=== PATIENT | female | born 1990 | race Caucasian/White ===

== ENCOUNTER 2022-10-08 20:15 | Emergency (ER) | payer OTHER ==
[2022-10-08 20:23] VITALS: BP 131/85; PULSE 80; RESP 18; TEMP 98.1; BMI 25.9
[2022-10-08] MEDS ORDERED: ACETAMINOPHEN 325 MG TABLET (FP) ONE (22:02)
== END 2022-10-09 00:20 | disposition left against medical advice (07) ==
LOC: JER 20:15 → JERFT 20:15 → JER 10-09 00:20
DX: R10.32 Left lower quadrant pain (principal); N93.0 Postcoital and contact bleeding
CPT/HCPCS: 99281-25

== ENCOUNTER 2023-08-12 03:40 | Inpatient (IN) | payer OTHER ==
[2023-08-07 10:34] VITALS: BMI 24.1
[2023-08-12] MEDS ORDERED: GENTAMICIN SO4 80 MG/2 ML VIAL ONE (07:19)
[2023-08-12] MEDS ORDERED: THROMBIN (BOVINE) 5,000 UNIT VIAL TP ONE (07:19)
[2023-08-12] MEDS ORDERED: LIDOCAINE 1%/EPI 1:100000 (20 ML MULTI DOSE VIAL) ONE (07:19)
[2023-08-12] MEDS: ceFAZolin SODIUM 1 GM VIAL IVPB ONE ×2 (07:30→08:40)
[2023-08-12] MEDS: VANCOMYCIN 1 GM in D5W (PRE-DOCKED) 1,000 MG/250 ML (RESTRICTED TO ID ONLY IVPB ONE ×2 (07:31→08:40)
[2023-08-12] MEDS: LIDOCAINE 1%/EPI 1:100000 (20 ML MULTI DOSE VIAL) IJ ONE ×2 (07:31→08:41)
[2023-08-12] MEDS ORDERED: SUCCINYLCHOLINE CHLORIDE 200 MG/10 ML SYRINGE ONE (07:32)
[2023-08-12] MEDS ORDERED: PROPOFOL 40 ML ONE (07:32)
[2023-08-12] MEDS ORDERED: FENTANYL CITRATE/PF 50 MCG/ML VIAL ONE ×8 (07:32→13:27)
[2023-08-12] MEDS ORDERED: MIDAZOLAM HCL 2 MG/2 ML SINGLE DOSE VIAL ONE (07:32)
[2023-08-12] MEDS ORDERED: ROCURONIUM BROMIDE 50 MG/5 ML SYRINGE ONE (07:32)
[2023-08-12] MEDS: THROMBIN (BOVINE) 5,000 UNIT VIAL TP ONE (09:27)
[2023-08-12] MEDS: GENTAMICIN SO4 80 MG/2 ML VIAL IVPB ONE ×2 (09:27→09:40)
[2023-08-12] MEDS: HYDROGEN PEROXIDE 473 ML PO ONE ×2 (09:27→09:40)
[2023-08-12] MEDS ORDERED: NEOSTIGMINE METHYLSULFATE 0.5 MG/1 ML - 10 ML MDV ONE (09:43)
[2023-08-12] MEDS ORDERED: ONDANSETRON 4 MG/2 ML VIAL IVPUSH PRN ×2 (10:12→10:18)
[2023-08-12] MEDS ORDERED: PROMETHAZINE HCL 25 MG/1 ML VIAL IVPB PRN (10:12)
[2023-08-12] MEDS ORDERED: diphenhydrAMINE HCL 25 MG CAPSULE (FP) PO PRN (10:18)
[2023-08-12] MEDS ORDERED: oxyCODONE HCL 5 MG TABLET PO PRN ×2 (10:18)
[2023-08-12] MEDS: HEPARIN NA (PORCINE) 5,000 UNITS/ML 1ML VIAL SQ SCH (10:30)
[2023-08-12] MEDS ORDERED: PATIENT'S OWN MEDICATION (NON-FORMULARY) (Acetaminophen [Tylenol] 325 MG Capsule) PO SCH (10:30)
[2023-08-12] MEDS ORDERED: ACETAMINOPHEN INJECTION 100 ML IVPB ONE (10:53)
[2023-08-12] MEDS: ACETAMINOPHEN 1000 MG/100 ML BAG IVPB SCH (10:56)
[2023-08-12] MEDS: FENTANYL CITRATE/PF 50 MCG/ML VIAL IVPUSH PRN (11:15)
[2023-08-12] MEDS ORDERED: HEPARIN NA (PORCINE) 5,000 UNITS/ML 1ML VIAL ONE (13:12)
[2023-08-12] MEDS: LACTATED RINGERS SOLUTION 1,000 ML IV SCH (13:45)
[2023-08-12] MEDS: LACTATED RINGERS SOLUTION 1,000 ML/1,000 ML INFUS.BAG IV SCH (14:21)
[2023-08-12 15:36] LABS: HEMATOCRIT 35.8 % (32.4-45.2); HEMOGLOBIN 12.1 GM/dL (10.7-15.3); MCH 29.7 pg (25.7-33.7); MCHC 33.7 g/dl (32.0-36.0); MEAN CELL VOLUME 88.2 fl (80-96); MEAN PLT VOLUME 8.1 fl (7.5-11.1); PLATELET COUNT 302 10^3/uL (134-434); RBC 4.06 M/mm3 (3.60-5.2); RDW 13.5 % (11.6-15.6)
[2023-08-12] MEDS: DOCUSATE SODIUM 100 MG CAPSULE (FP) PO SCH (15:49)
[2023-08-12] MEDS: CYCLOBENZAPRINE HCL 10 MG TABLET (FP) PO SCH (15:49)
[2023-08-12] MEDS: morphine SULFATE 4 MG/ML VIAL IVPUSH PRN (15:49)
[2023-08-12 15:56] LABS: POTASSIUM 4.7 mmol/L (3.5-5.1)
[2023-08-12 15:58] LABS: CALCIUM 9.1 mg/dL (8.5-10.1)
[2023-08-12 16:00] LABS: ALBUMIN 3.5 g/dl (3.4-5.0); BLOOD UREA NITROGEN 8.2 mg/dL (7-18); MAGNESIUM 1.9 mg/dL (1.8-2.4)
[2023-08-12 16:02] LABS: CREATININE 0.6 mg/dL (0.55-1.3)
[2023-08-12 16:04] LABS: BILIRUBIN,TOTAL 0.4 mg/dL (0.2-1); TOT PROT 7.2 g/dl (6.4-8.2)
[2023-08-12] MEDS: CEFAZOLIN 1 GM in DEXTROSE 5%-WATER - 50 ML IVPB SCH (18:15)
[2023-08-13 08:44] LABS: HEMOGLOBIN 10.4 GM/dL (10.7-15.3); MCHC 33.6 g/dl (32.0-36.0); MEAN CELL VOLUME 89.3 fl (80-96); PLATELET COUNT 240 10^3/uL (134-434); RBC 3.47 M/mm3 (3.60-5.2); RDW 13.6 % (11.6-15.6); WHITE BLOOD COUNT 8.4 K/mm3 (4.0-10.0)
[2023-08-13 08:58] LABS: POTASSIUM 4.6 mmol/L (3.5-5.1)
[2023-08-13 09:02] LABS: CALCIUM 8.8 mg/dL (8.5-10.1)
[2023-08-13 09:03] LABS: CREATININE 0.5 mg/dL (0.55-1.3)
[2023-08-13 14:52] VITALS: BP 110/72; PULSE 99; RESP 18; TEMP 98.4
== END 2023-08-13 15:30 | disposition home or self-care (01) | DRG 321 ==
LOC: J2C 03:40 → J8W 14:32
PROVIDERS: ADMIT Neurological Surgery; ATTEND Nurse Practitioner Acute Care
PROC: 0RB30ZZ Excision of Cervical Vertebral Disc, Open Approach (ICD-10-PCS; 2023-08-12)
PROC: 00NW0ZZ Release Cervical Spinal Cord, Open Approach (ICD-10-PCS; 2023-08-12)
PROC: 4A1004G Monitoring of Central Nervous Electrical Activity, Intraoperative, Open Approach (ICD-10-PCS; 2023-08-12)
PROC: 0RG20A0 Fusion of 2 or more Cervical Vertebral Joints with Interbody Fusion Device, Anterior Approach, Anterior Column, Open Approach (ICD-10-PCS; principal; 2023-08-12 08:00)
DX: M47.12 Other spondylosis with myelopathy, cervical region (principal); M40.209 Unspecified kyphosis, site unspecified
CPT/HCPCS: 36415; 72125-TC; 76000-TC-FY; 80048; 80053; 81025; 83735; 84100; 85025; 85027; 86850; 86900; 86901; 94760; 97116-GP; 97161-GP; C1713; J0131; J1644

== ENCOUNTER 2023-10-27 22:15 | Emergency (ER) | payer OTHER ==
[2023-10-27 22:21] VITALS: BP 105/71; PULSE 69; RESP 20; TEMP 97.8; BMI 24.1
[2023-10-27] MEDS: METHOCARBAMOL 500 MG TABLET PO ONE (23:20)
[2023-10-27] MEDS ORDERED: METHOCARBAMOL 500 MG TABLET ONE (23:22)
== END 2023-10-28 01:56 | disposition home or self-care (01) ==
LOC: JER 22:15
DX: M54.2 Cervicalgia (principal)
CPT/HCPCS: 99283-25

== ENCOUNTER 2024-04-14 14:15 | Emergency (ER) | payer OTHER ==
[2024-04-14 14:33] VITALS: BMI 26.6
[2024-04-14] MEDS ORDERED: ACETAMINOPHEN 325 MG TABLET (FP) ONE (15:46)
[2024-04-14] MEDS: SODIUM CHLORIDE 0.9% 500 ML INFUS.BAG IV ONE (15:58)
[2024-04-14] MEDS: ACETAMINOPHEN 500 MG TABLET (FP) PO ONE (15:58)
[2024-04-14 16:13] LABS: BASO % 0.4 % (0-2.0); EOS % 1.6 % (0-4.5); HEMATOCRIT 34.4 % (32.4-45.2); HEMOGLOBIN 11.9 GM/dL (10.7-15.3); LYMPH % 17.2 % (8-40); MCH 30.6 pg (25.7-33.7); MCHC 34.5 g/dl (32.0-36.0); MEAN CELL VOLUME 88.5 fl (80-96); MEAN PLT VOLUME 8.4 fl (7.5-11.1); MONO % 6.4 % (3.8-10.2); NEUT % 74.4 % (42.8-82.8); PLATELET COUNT 250 10^3/uL (134-434); RBC 3.88 M/mm3 (3.60-5.2); RDW 14.4 % (11.6-15.6)
[2024-04-14 16:15] LABS: EPI CELLS >36 /uL (0-25.1); HYALINE CASTS 0 /uL (0-3.1); PH,URINE 6.5 (5.0-8.0); URINE APPEARANCE CLEAR; URINE BACTERIA 1189 /uL (0-1359); URINE BILIRUBIN NEGATIVE (NEGATIVE); URINE COLOR YELLOW; URINE GLUCOSE (UA) NEGATIVE (NEGATIVE); URINE KETONE NEGATIVE (NEGATIVE); URINE LEUK ESTERASE 3+ (NEGATIVE); URINE NITRITE NEGATIVE (NEGATIVE); URINE PROTEIN NEGATIVE (NEGATIVE); URINE RBC 7 /uL (0-23.9); URINE WBC 81 /uL (0-25.8)
[2024-04-14 16:33] LABS: ALBUMIN 3.8 g/dl (3.4-5.0); BLOOD UREA NITROGEN 7.6 mg/dL (7-18); CALCIUM 9.3 mg/dL (8.5-10.1)
[2024-04-14 16:36] LABS: CREATININE 0.4 mg/dL (0.55-1.3)
[2024-04-14 16:38] LABS: BILIRUBIN,TOTAL 0.3 mg/dL (0.2-1); TOT PROT 7.3 g/dl (6.4-8.2)
[2024-04-14 16:41] LABS: HCG,QUALITATIVE URINE Positive
[2024-04-14 18:07] LABS: URINE APPEARANCE CLEAR; URINE BILIRUBIN NEGATIVE (NEGATIVE); URINE COLOR YELLOW; URINE GLUCOSE (UA) 3+ (NEGATIVE); URINE KETONE TRACE (NEGATIVE); URINE LEUK ESTERASE NEGATIVE (NEGATIVE); URINE NITRITE NEGATIVE (NEGATIVE); URINE PROTEIN NEGATIVE (NEGATIVE); URINE UROBILINOGEN 0.2 mg/dL (0.2-1.0)
[2024-04-14 19:36] VITALS: BP 110/71; PULSE 72; RESP 18; TEMP 98.2
== END 2024-04-14 20:03 | disposition home or self-care (01) ==
LOC: JER 14:15
DX: O26.891 Other specified pregnancy related conditions, first trimester (principal); R10.30 Lower abdominal pain, unspecified; Z3A.13 13 weeks gestation of pregnancy
CPT/HCPCS: 36415; 76801-TC; 80053; 81003; 84703; 85025; 87077; 87086; 99284-25

== ENCOUNTER 2024-04-16 17:20 | Emergency (ER) | payer OTHER ==
[2024-04-16 17:25] VITALS: BP 111/73; PULSE 97; RESP 18; TEMP 98.4; BMI 26.6
[2024-04-16 18:46] LABS: PH,URINE 7.5 (5.0-8.0); URINE APPEARANCE CLEAR; URINE BILIRUBIN NEGATIVE (NEGATIVE); URINE COLOR YELLOW; URINE GLUCOSE (UA) NEGATIVE (NEGATIVE); URINE KETONE NEGATIVE (NEGATIVE); URINE LEUK ESTERASE NEGATIVE (NEGATIVE); URINE NITRITE NEGATIVE (NEGATIVE); URINE PROTEIN NEGATIVE (NEGATIVE)
== END 2024-04-16 21:03 | disposition home or self-care (01) ==
LOC: JER 17:20
DX: O23.591 Infection of other part of genital tract in pregnancy, first trimester (principal); B37.9 Candidiasis, unspecified; O99.891 Other specified diseases and conditions complicating pregnancy; R11.0 Nausea; Z3A.14 14 weeks gestation of pregnancy
CPT/HCPCS: 36415; 81003; 87070; 87077; 87086; 87205; 87491; 87591; 87661; 99283-25